=== PATIENT | female | born 1980 | race Caucasian/White ===

== ENCOUNTER 2017-06-01 07:47 | Inpatient (IN) | payer MEDICARE, MEDICAID ==
[~2017-06-01] VITALS: Ht 160 cm; Wt 65.0 kg
[2017-06-01] VITALS (22 sets, daily range): BP systolic 140–187; BP diastolic 66–88; BMI 25.9; BMI 26.0
[~2017-06-01 07:47] MED LIST: AMBIEN10 MG PO; AMITRIPTYLINE H50 MG PO; ESTRACE 0.5 MG0.5 MG PO; MIDODRINE HCL2.5 MG PO; OMEPRAZOLE20 M1 PO; PREDNISONE5 MG PO; RENVELA800 MG PO; TACROLIMUS ANHYD1 MG PO
[2017-06-01] MEDS ORDERED: ZANAFLEX4 MG PO (09:05)
[2017-06-01 09:34] LABS: INR 1.47 (0.85-1.17); PROTIME 17.8 SECONDS (11.6-15.0)
[2017-06-01 09:36] LABS: BASOPHILS 0.3 % (0-2); EOSINOPHILS 4.7 % (0-7); HEMATOCRIT 20.7 % (36.0-48.0); IMMATURE GRANULOCYTES 1.5 % (0-5); LYMPHOCYTES 5.5 % (15-50); MCH 29.1 pg (26.0-34.0); MCHC 30.9 g/dL (31.0-37.0); MCV 94.1 fL (80.0-100.0); MEAN PLATELET VOLUME 10.2 fL (7.4-10.4); MONOCYTES 5.9 % (2-11); NEUTROPHILS 82.1 % (40-80); RDW 16.8 % (11.5-14.5); WBC 6.6 10x3/uL (4.8-10.8)
[2017-06-01 09:37] LABS: PLATELET COUNT 114 10x3/uL (130-400)
[2017-06-01 09:38] LABS: HEMOGLOBIN 6.4 g/dL (12-16)
[2017-06-01 10:13] LABS: CARBON DIOXIDE 21.1 mmol/L (21.0-32.0); CREATININE - SERUM 7.6 mg/dL (0.6-1.3); POTASSIUM - SERUM 4.5 mmol/L (3.5-5.1)
[2017-06-01 10:15] LABS: ANION GAP 18.4 mmol/L (8-16)
--- NOTE | 2017-06-01 10:26 | NUR ---
1020 PT RETURNED TO 2507. CODY BENAVIDEZ APN PAGED
--- NOTE | 2017-06-01 10:58 | NUR ---
6122 CODY BENAVIDEZ APN RETURNED CALL, LAB VALUES GIVEN, ORDERS RECEIVED TO ADMIT TO ICU. PT AND FAMILY INFORMED.
--- NOTE | 2017-06-01 11:19 | NUR ---
1111 REPORT PHONED TO SETH, TO CV06 VIA STRETCHER
--- NOTE | 2017-06-01 11:32 | NUR ---
PT ARRIVED TO UNIT VIA STRETCHER. PT ALERT AND CONVERSANT. ASSISTED TO TOILET PRIOR TO GETTING IN BED. ON NS DRIP.
--- NOTE | 2017-06-01 11:58 | NUR ---
ATTEMPTED BLOOD GLUCOSE CHECK VIA GLUCOMETER. TOO HIGH TO READ. BLOOD GASES ORDERED. POONAM BENAVIDEZ APN FOR RENAL HERE AT THIS TIME.
--- NOTE | 2017-06-01 14:45 | NUR ---
BLOOD GLUCOSE 883 NOW. GLUCOSE DEC >15%. WILL NOT CHANGE INSULIN GTT PER PROTOCOL. RECHECK AFTER 1 HR.
--- NOTE | 2017-06-01 16:45 | NUR ---
Mrs. Flanagan had bedside hemodialysis today in the CVICU via her left upper arm av graft from 1358 until 1628. Average blood flow was 400 mls/minute. Transfused two units of prbc's on dialysis. Removed the 700 mls from the prbc's as well as a net of 2500 mls. No problems during treatment. Post vital signs were: B/P: 177/88, HR: 87, Temp: 98.5, Resps: 14.
--- NOTE | 2017-06-01 17:20 | NUR ---
PT'S AT BEDSIDE WITH DR. PINEDA. UPDATED ON PT'S STATUS.
--- NOTE | 2017-06-01 17:29 | NUR ---
INSULIN GTT DEC TO 3 UNITS/HR PER DR. PINEDA.
[2017-06-01 18:13] LABS: BASOPHILS 0.2 % (0-2); EOSINOPHILS 5.1 % (0-7); HEMATOCRIT 30.1 % (36.0-48.0); HEMOGLOBIN 10.1 g/dL (12-16); IMMATURE GRANULOCYTES 1.2 % (0-5); LYMPHOCYTES 4.6 % (15-50); MCHC 33.6 g/dL (31.0-37.0); MEAN PLATELET VOLUME 9.4 fL (7.4-10.4); NEUTROPHILS 82.9 % (40-80); PLATELET COUNT 134 10x3/uL (130-400); RBC 3.37 10x6/uL (4.00-5.40); RDW 15.7 % (11.5-14.5); WBC 10.2 10x3/uL (4.8-10.8)
[2017-06-01 18:14] LABS: MCV 89.3 fL (80.0-100.0)
[2017-06-01 18:37] LABS: TOTAL IRON BIND CAPACITY 220 ug/dl (260-445)
[2017-06-01 18:57] LABS: CALCIUM 8.7 mg/dL (8.5-10.1)
[2017-06-01 19:04] LABS: ANION GAP 10.1 mmol/L (8-16); CARBON DIOXIDE 30.5 mmol/L (21.0-32.0); CREATININE - SERUM 4.4 mg/dL (0.6-1.3)
[2017-06-01 19:05] LABS: POTASSIUM - SERUM 2.6 mmol/L (3.5-5.1)
--- NOTE | 2017-06-01 19:13 | NUR ---
PT CRITICAL POTASSIUM RESULT. RENAL ON-CALL PAGED. AWAITING RETURN CALL.
--- NOTE | 2017-06-01 19:25 | NUR ---
REPORT REC'D AND CARE ASSUMED, REC'D PT RESTING IN BED, O2 @ 3LITERS VIA NC, AWAKE, ALERT, ORIENTED, AT BS, LEFT HAND PIV WITH NS @ 20CC/HR AND INSULIN @ 3 UNITS/HR, PT COMPLAINS OF CHRONIC BACK PAIN, RATING "6-7" ON 0-10 PAIN SCALE, LEFT GREAT TOE PREVIOUSLY AMPUTATED, GENERALIZED EDEMA NOTED TO LOWER EXT'S, INFORMED PT WOULD CHECK ON PAIN MEDICATION, SR UP X 2, BED IN LOW POSITION, CALL LIGHT IN REACH.
--- NOTE | 2017-06-01 19:45 | NUR ---
PAGED REGARDING CRITICAL POTASSIUM
--- NOTE | 2017-06-01 19:50 | NUR ---
TIZANDINE GIVEN PO FOR PAIN, PT DENIES FURTHER NEEDS, BP STABLE WILL CONT TO MONITOR FOR CHANGES.
--- NOTE | 2017-06-01 20:00 | NUR ---
CABLE BRAIDER PHYSICIAN REPAGED REGARDING LAB VALUE.
[2017-06-01 20:07] LABS: % SATURATION 103 % (15-55); IRON 242 ug/dl (35-150)
--- NOTE | 2017-06-01 20:20 | NUR ---
SPOKE WITH ANSWERING SERVICE REGARDING NO RETURNED CALL FROM MD AFTER PAGE, INFORMED WRONG PHYSICIAN PAGED, DR. OLEARY PAGED REGARDING LAB VALUE.
--- NOTE | 2017-06-01 20:40 | NUR ---
SPOKE WITH DR. OLEARY REGARDING CRITICAL POTASSIUM, NEW ORDERS REC'D.
--- NOTE | 2017-06-01 21:20 | NUR ---
EVENING MEDS GIVEN
--- NOTE | 2017-06-01 21:40 | NUR ---
1ST 10MEQ OF KCL BEGUN AT THIS TIME.
--- NOTE | 2017-06-01 22:40 | NUR ---
FSBS 67, PT ALERT AND CONVERSATING, INSULIN GTT ON HOLD
--- NOTE | 2017-06-01 23:15 | NUR ---
FSBS 88, PT ASSISTED TO REPOSITION ONTO LEFT SIDE, PT DENIES PAIN OR OTHER NEEDS.
[2017-06-02] VITALS (24 sets, daily range): BP systolic 141–195; BP diastolic 68–99; Ht 160 cm; Wt 65.0 kg
--- NOTE | 2017-06-02 01:30 | NUR ---
FSBS 123, INSULIN GTT RESUMED @ 1 UNIT/HR, BP STABLE, WILL MONITOR CLOSELY FOR CHANGES.
--- NOTE | 2017-06-02 03:30 | NUR ---
LAB AT BS FOR AM LAB DRAW, PT DENIES NEEDS, BP ELEVATED WILL CON TO MONITOR FOR CHANGES
[2017-06-02 03:46] LABS: BASOPHILS 0.1 % (0-2); EOSINOPHILS 6.6 % (0-7); HEMATOCRIT 29.6 % (36.0-48.0); HEMOGLOBIN 9.9 g/dL (12-16); IMMATURE GRANULOCYTES 0.9 % (0-5); LYMPHOCYTES 5.8 % (15-50); MCH 30.1 pg (26.0-34.0); MCHC 33.4 g/dL (31.0-37.0); MEAN PLATELET VOLUME 9.2 fL (7.4-10.4); MONOCYTES 7.1 % (2-11); NEUTROPHILS 79.5 % (40-80); PLATELET COUNT 111 10x3/uL (130-400); RBC 3.29 10x6/uL (4.00-5.40); RDW 16.1 % (11.5-14.5); WBC 7.9 10x3/uL (4.8-10.8)
[2017-06-02 04:00] LABS: ANION GAP 9.1 mmol/L (8-16); CALCIUM 8.4 mg/dL (8.5-10.1); CARBON DIOXIDE 31.3 mmol/L (21.0-32.0); CREATININE - SERUM 4.8 mg/dL (0.6-1.3)
[2017-06-02 04:01] LABS: POTASSIUM - SERUM 3.4 mmol/L (3.5-5.1)
--- NOTE | 2017-06-02 05:40 | NUR ---
AM MEDS GIVEN, PT AWAKE TALKING ON PHONE, PT DENIES PAIN OR NEEDS, SR UP X 2, BED IN LOW POSITION, CALL LIGHT IN REACH.
--- NOTE | 2017-06-02 06:00 | NUR ---
NO VISITORS IN AT THIS TIME
--- NOTE | 2017-06-02 06:45 | NUR ---
ON UNIT, UPDATE PROVIDED AND NEW ORDERS REC'D.
[2017-06-02 07:10] LABS: % SATURATION 75 % (15-55); IRON 126 ug/dl (35-150); TOTAL IRON BIND CAPACITY 168 ug/dl (260-445); UNSAT IRON BIND CAPACITY 42 ug/dl (150-375)
--- NOTE | 2017-06-02 07:15 | NUR ---
RECEIVED PT FOR CARE. PT RESTING IN BED WITH EYES OPEN. CALL LIGHT WITHIN REACH. ASSESSMENT COMPLETED. VSS AT THIS TIME.
--- NOTE | 2017-06-02 07:20 | NUR ---
LAB NOTIFIED REGARDING ORDER FOR ANTIERYTHROPOETIN ANTIBODY, ANN, IN LAB STATED HE WOULD FIND OUT HOW TO ORDER AND GET BACK TO ME.
--- NOTE | 2017-06-02 07:25 | NUR ---
SPOKE WITH ANN IN THE LAB, STATED THAT NO LAB IN THE [facility] STATES DOES AND ANTIERYTHROPOETIN ANTIBODY, UPDATE PROVIDED TO AM NURSE.
--- NOTE | 2017-06-02 10:38 | NUR ---
PT UP TO RESTROOM. INCONTINENT OF STOOL. SET UP IN BATHROOM WITH BATHING SUPPLIES AND NEW GOWN. PT ABLE TO WASH SELF.
--- NOTE | 2017-06-02 10:50 | NUR ---
PT AMBULATING AROUND ROOM. STEADY GAIT NOTED.
--- NOTE | 2017-06-02 10:55 | NUR ---
CALLED AND NOTIFIED JACY AT DR. LITTLE'S OFFICE THAT THE LAB IS UNABLE TO FIND ANYONE THAT CAN RUN THE ANTI-ERYTHROPOETIN ANTIBODY LAB. SHE TOOK MY NAME AND NUMBER AND WILL NOTIFY THE NURSE PRACTICTIONER.
--- NOTE | 2017-06-02 11:20 | NUR ---
CHRISTOPHER KENNEDY APN FOR RENAL RETURNED CALL. UPDATED HER ON NOT BEING ABLE TO SEND OUT LAB THAT DR. LITTLE REQUESTED. SHE VOICED UNDERSTANDING.
--- NOTE | 2017-06-02 14:53 | NUR ---
LINENS CHANGED ON BED. PT ASSISTED BACK TO BED. STEADY GAIT NOTED. VSS AT THIS TIME.
--- NOTE | 2017-06-02 17:10 | NUR ---
PT SITTING UP IN BED. NO NEEDS AT THIS TIME. VSS.
--- NOTE | 2017-06-02 19:45 | NUR ---
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
--- NOTE | 2017-06-02 21:15 | NUR ---
EVENING MEDS GIVEN, FSBS 295, 6UNITS HUMALONG GIVEN SQ TO LEFT ARM PER REQUEST, NO VISITORS IN AT THIS TIME, WILL MONITOR CLOSELY FOR CHANGES.
--- NOTE | 2017-06-02 23:30 | NUR ---
REASSESSMENT COMPLETED, PT RESTING ON RIGHT SIDE EYES CLOSED, RESP EVEN AND UNLABORED, VSS.
[2017-06-03] VITALS (21 sets, daily range): BP systolic 155–206; BP diastolic 74–105
--- NOTE | 2017-06-03 00:35 | NUR ---
PT'S O2 SAT 72%, SLEEP APNEA NOTED, PT AWAKENED AND DEEP BREATHING DONE, O2 SAT 95%, WILL MONITOR CLOSELY FOR CHANGES.
--- NOTE | 2017-06-03 00:45 | NUR ---
O2 SAT DECREASED AGAIN TO 70'S, PT AWAKENED STATES " I HAVE SLEEP APNEA" O2 PLACED AT 2LITERS VIA NC, WILL MONITOR CLOSELY FOR CHANGES.
--- NOTE | 2017-06-03 03:00 | NUR ---
LAB AT FOR AM LAB DRAW
--- NOTE | 2017-06-03 04:30 | NUR ---
NO CHANGES IN STATUS
[2017-06-03 04:35] LABS: BASOPHILS 0.1 % (0-2); HEMATOCRIT 30.1 % (36.0-48.0); HEMOGLOBIN 9.8 g/dL (12-16); IMMATURE GRANULOCYTES 1.2 % (0-5); LYMPHOCYTES 6.4 % (15-50); MCH 29.6 pg (26.0-34.0); MCHC 32.6 g/dL (31.0-37.0); MCV 90.9 fL (80.0-100.0); MEAN PLATELET VOLUME 9.8 fL (7.4-10.4); MONOCYTES 5.8 % (2-11); NEUTROPHILS 82.5 % (40-80); PLATELET COUNT 131 10x3/uL (130-400); RBC 3.31 10x6/uL (4.00-5.40); RDW 16.9 % (11.5-14.5); WBC 7.6 10x3/uL (4.8-10.8)
[2017-06-03 04:48] LABS: ANION GAP 14.1 mmol/L (8-16); CALCIUM 8.5 mg/dL (8.5-10.1); PHOSPHOROUS 3.2 mg/dL (2.5-4.9)
[2017-06-03 04:50] LABS: CREATININE - SERUM 6.5 mg/dL (0.6-1.3); POTASSIUM - SERUM 4.1 mmol/L (3.5-5.1)
--- NOTE | 2017-06-03 06:30 | NUR ---
AM MEDS GIVEN, FSBS 347, 8 UNITS HUMALOG GIVEN SUBQUE, NO VISITORS IN AT THIS TIME
--- NOTE | 2017-06-03 07:15 | NUR ---
REPORT RECIEVED FROM NEONATAL SOCIAL WORKER NURSE. PT RESTING QUEITLY. NO S/SX OF ACUTE DISTRESS NOTED AT THIS TIME. SHIFT ASSESSMENT COMPLETE PER FLOWSHEET. CALL LIGHT IN REACH. BED IN LOW POSITION. WILL CONT TO ASSESS FOR CHANGES.
--- NOTE | 2017-06-03 09:06 | NUR ---
* Is the patient Alert and Oriented? Yes 0 * How many steps to enter\exit or inside your home? 1 0 * PCP Marli Bowman 0 * [facility] * Preadmission Environment Home with Family 0 * ADLs Independent 0 * Equipment Other 0 * Other Equipment Home Hemodialysis 0 * List name and contact numbers for known caregivers / representatives who currently or will assist patient after discharge: Spouse - Flavio [phone] 0 * Additional services required to return to the preadmission environment? Yes 0 * Can the patient safely return to the preadmission environment? Yes 0 * Has this patient been hospitalized within the prior 30 days at any hospital? No Patient Name: WILBERT HINES Admission Status: Elective Accout number: [id number] Admission Date: 06-01-2017 : 1980 Admission Diagnosis: Attending: MARQUEZ Current LOS: 2 Anticipated DC Date: 06-04-2017 Planned Disposition: Home with Home Health Primary Insurance: MEDICARE A & B Discharge Planning Comments: CM met with patient to assess dc plans/needs. Patient states she lives at home with her , Flavio. She reports she is independent with all ADL's & IADL's. She does not use any assistive devices for mobility. She does home HD 5 days per week. She denies having home health services. Discussed HH services. She is agreeable to referral at discharge. RAJNI signed for [email or web address] in [place]. Referral faxed and called to Briana @ [phone]. Patient states she does not have a glucometer but will be getting one at [facility] when discharged from the hospital. Anticipate DC tomorrow. CM will follow. Utility Bill Collection Clerk: Marli Real
[2017-06-03 09:18] LABS: FOLATE (FOLIC ACID) - SERUM 2.9 ng/mL (>3.0)
--- NOTE | 2017-06-03 09:30 | NUR ---
DIALYSIS STARTED. VSS AT THIS TIME. WILL CONT TO ASSESS.
--- NOTE | 2017-06-03 11:15 | NUR ---
REMAINS ON DIALYSIS TX. WILL CONT TO ASSESS. NO NEEDS VOICED AT THIS TIME.
--- NOTE | 2017-06-03 13:00 | NUR ---
DIALYSIS COMPLETE. NO COMPLICATIONS NOTED THROUGHOUT TX. VSS REMAINED STABLE. WILL CONT TO ASSESS.
--- NOTE | 2017-06-03 15:00 | NUR ---
ASSISTED TO RECLINER. CALL LIGHT AND PERSONAL BELONGINGS PLACED IN REACH. DENIES NEEDS AT THIS TIME. WILL CONT TO ASSESS.
--- NOTE | 2017-06-03 17:00 | NUR ---
VSS. EATING DINNER. NO CHANGES NOTED.
--- NOTE | 2017-06-03 19:50 | NUR ---
REPORT REC'D AND CARE ASSUMED, REC'D PT SITTING UP IN RECLINER AT BS VISITING WITH SPOUSE, AWAKE, ALERT, ORIENTED X 4 ON ROOM AIR, LEFT HAND PIV SALINE LOCKED, RIGHT UPPER ARM FISTULA, PALPABLE THRILL AND BRUIT AUSCULTATED, LEFT GREAT TOE PREVIOUSLY AMPUTATED, PT DENIES PAIN OR NEEDS, CALL LIGHT IN REACH.
--- NOTE | 2017-06-03 20:00 | NUR ---
PT ASSISTED UP TO BATHROOM, PT STATES " I HAVE A RASH", RASH NOTED TO INNER THIGHS AND BACK OF LEGS, PT REQUESTING SOMETHING FOR IT STATES " I USUALLY GET IT IT IS CAUSED FROM HEAT", SKIN BARRIER SPRAY PROVIDED.
--- NOTE | 2017-06-03 20:15 | NUR ---
PT ASSISTED BACK TO BED, AT
--- NOTE | 2017-06-03 21:30 | NUR ---
EVENING MEDS GIVEN, PT REQUESTING AMBIEN FOR SLEEP, PROVIDED AT THIS TIME, FSBS 319, 8 UNITS HUMALOG GIVEN, CUP OF ICE PROVIDED ON REQUEST, PT DENIES NO FURTHER NEEDS.
[2017-06-04] VITALS: BP 169/85
--- NOTE | 2017-06-04 01:00 | NUR ---
REPORT GIVEN TO VAHID COELHO RN
--- NOTE | 2017-06-04 01:00 | NUR ---
REPORT RECIEVED. PT APPEARS TO BE SLEEPING DENIES ANY NEEDS. WILL CONTINUE TO MONITOR.
[2017-06-04 03:00] VITALS: BP 182/82
--- NOTE | 2017-06-04 03:09 | NUR ---
PT COMPLAINS OF BACK PAIN. PAIN OF A 10 OUT OF 10 TREATED WITH PRN MEDS PER ORDER.
[2017-06-04 06:48] LABS: BASOPHILS 0.3 % (0-2); EOSINOPHILS 4.9 % (0-7); HEMATOCRIT 29.2 % (36.0-48.0); HEMOGLOBIN 9.2 g/dL (12-16); IMMATURE GRANULOCYTES 1.6 % (0-5); LYMPHOCYTES 7.3 % (15-50); MCH 29.6 pg (26.0-34.0); MCHC 31.5 g/dL (31.0-37.0); MCV 93.9 fL (80.0-100.0); MEAN PLATELET VOLUME 8.5 fL (7.4-10.4); MONOCYTES 6.5 % (2-11); NEUTROPHILS 79.4 % (40-80); PLATELET COUNT 104 10x3/uL (130-400); RBC 3.11 10x6/uL (4.00-5.40); RDW 16.9 % (11.5-14.5); WBC 7.1 10x3/uL (4.8-10.8)
[2017-06-04 07:15] LABS: ANION GAP 12.9 mmol/L (8-16); CALCIUM 8.3 mg/dL (8.5-10.1); CARBON DIOXIDE 28.4 mmol/L (21.0-32.0); CREATININE - SERUM 5.5 mg/dL (0.6-1.3); PHOSPHOROUS 3.4 mg/dL (2.5-4.9)
[2017-06-04 07:20] LABS: POTASSIUM - SERUM 3.3 mmol/L (3.5-5.1)
[2017-06-04] MEDS ORDERED: COZAAR50 MG PO (09:48)
[2017-06-04] MEDS ORDERED: NORVASC5 MG PO (09:48)
[2017-06-04] MEDS ORDERED: HUMULIN N100 U/ML SC (09:50)
[2017-06-04] MEDS ORDERED: HUMALOG 30100 UNITS/ SC (09:51)
[2017-06-04] MEDS ORDERED: NEPHRO-VITE RX1 TAB PO (09:51)
[2017-06-04] MEDS ORDERED: TACROLIMUS ANHYD1 MG PO (09:51)
--- NOTE | 2017-06-04 09:53 | NUR ---
Nutrition Follow Up: Chart reviewed. Pt is eating 60% meal avg on a renal ADA soft diet. Wt stable. +BM 06/02/17. Labs reviewed - Glucose continues elevated. Meds noted. Rec continue current diet. RD following.
--- NOTE | 2017-06-04 12:10 | NUR ---
KIT MET WITH THE PATIENT AT THE BEDSIDE THIS AM. STATED I WOULD ADVISE [employer] OF HER DISCHARGE. DISCUSSED WHEN SHE WOULD F/U WITH DR WATSON. SHE WOULD LIKE HIM TO BE ADVISED OF HER HOSPITALIZATION AND D/C. PRIMARY NURSE TO ADVISE OF D/C INSTRUCTIONS AND MED LIST. PATIENT DENIES ANY OTHER NEEDS. TC TO DR SNIDER'S OFFICE AT [phone]. FAXED D/C SUMMARY TO [phone]. TC TO [employer] [facility] AT [phone]. FAXED D/C SUMMARY, MEDLIST,D/C INSTRUCTION & SPEECH THERAPY BEDSIDE SWALLOW EVAL [phone].
--- NOTE | 2017-06-04 12:51 | NUR ---
1030-CALLED IN PRESCRIPTION FOR COZAAR 50 MG PO-NPH 10UNITS BID-HUMALOG S/S-NEPHROVITE 1 TAB DAILY TO [facility] DISCHARGE INSTRUCTIONS GIVEN AND STRESSED TO CONTINUE FOLLOW UP WITH DR GILLILAND REGARDING INITIAL ADMISSION DIAGNOSIS-PT STATED SHE WOULD
--- NOTE | 2017-06-07 07:17 | DS ---
PATIENT:WILBERT FLANAGAN :[birth year] MEDICAL RECORD: [id number] DISCHARGE SUMMARY ADMISSION DATE: 06/01/17 DISCHARGE DATE: 06/04/17 HISTORY OF PRESENT ILLNESS: Ms. 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 She also has a pancreas transplant that she takes immunosuppressive therapy. She has been stable on home dialysis and was admitted to the outpatient area for a bilateral breast biopsy by Dr. Hogan and preop lab revealed a blood sugar of over a thousand. The patient was asymptomatic and consequently was admitted for the above. HOSPITAL COURSE: The patient was begun on insulin drip and blood sugars are promptly improved. This was felt to represent her pancreatic transplant failure. She was covered with broad-spectrum antibiotics on an empiric basis. Initial cultures were negative. She was eventually switched from IV to subq, longer lasting NPH insulin. 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 She is followed by Dr. Pat and an antierythropoietin antibody apparently is not available for send out. At the time of discharge, she was back to baseline and we are in the process of tapering her immunosuppressive drugs. Her abdominal ultrasound was negative and she was otherwise stable. DISCHARGE DIAGNOSES: 1. Failure of a pancreatic transplant. 2. Severe hyperglycemia secondary to the above. 3. End-stage renal disease. 4. Loss of the kidney transplant. 5. Hypertension. 6. Chronic anemia. PLAN: The patient will be discharged today. She will resume her home dialysis schedule. She will see me in the office in 1-2 weeks and resume her renal diet. DISCHARGE MEDICATIONS: Will be Nephro-Kasia 1 daily, Norvasc 5 mg b.i.d., Ambien p.r.n., NPH 10 subQ b.i.d., Prograf 1 mg daily. She will be on prednisone 5 mg daily. We will taper that and the Prograf as an outpatient, estradiol 0.5 daily, Protonix 40 daily, Epogen resume as an outpatient and follow up with Dr. Pat, Daphne 1600 t.i.d., Elavil 50 mg h.s. TRANSINT:[id number] Voice Confirmation ID: [id number] DOCUMENT ID: [id number] CC: [facility] [phone] SAMUEL LITTLE MD at 0717 CC: [id number] DICTATION DATE: 06/04/17 0747 EXPEDITIONARY FORCE COMBAT SKILLS: 06/04/17 0823 DIS IN 06/04/17 [id number] [place] [address]
== END 2017-06-04 11:00 | disposition home health service (06) | DRG 438 ==
LOC: D.OPS 07:47 → D.PAN 09:45 → D.OPS 10:15 → D.PAN 10:15 → D.CVICU 11:22 → D.OPS 11:23 → D.CVICU 06-04 11:00
PROVIDERS: Internal Medicine; Surgery; ADMIT Internal Medicine Nephrology
PROC: 5A1D60Z (ICD-10-PCS; principal; 2017-06-01)
DX: T86.891 Other transplanted tissue failure (principal); E10.10 Type 1 diabetes mellitus with ketoacidosis without coma; N18.6 End stage renal disease; T86.12 Kidney transplant failure; Z79.4 Long term (current) use of insulin; Z99.2 Dependence on renal dialysis; D64.9 Anemia, unspecified; Y83.0 Surgical operation with transplant of whole organ as the cause of abnormal reaction of the patient, or of later complication, without mention of misadventure at the time of the procedure; E10.22 Type 1 diabetes mellitus with diabetic chronic kidney disease; E10.40 Type 1 diabetes mellitus with diabetic neuropathy, unspecified; I95.9 Hypotension, unspecified; N63 Unspecified lump in breast; G47.30 Sleep apnea, unspecified; F32.9 Major depressive disorder, single episode, unspecified; F41.9 Anxiety disorder, unspecified

== ENCOUNTER 2017-11-30 05:11 | Day surgery (SDC) | payer MEDICARE ==
[~2017-11-30] VITALS: Ht 160 cm; Wt 82.6 kg
--- NOTE | ~2017-11-30 | OP ---
PATIENT NAME: WILBERT HINES MEDICAL RECORD: [id number] :[birth year] LOCATION:[facility] ADMISSION DATE: SURGEON: CHRISTOS GILLILAND MD DATE OF OPERATION: 11/30/2017 PREOPERATIVE DIAGNOSES: 1. Fibrocystic breast disease. 2. Bilateral breast pain. 3. End-stage renal disease. 4. Diabetes mellitus. 5. Hypertension. 6. Anemia of chronic disease. POSTOPERATIVE DIAGNOSES: 1. Fibrocystic breast disease, bilateral breast pain. 2. End-stage renal disease. 3. Diabetes mellitus. 4. Hypertension. 5. Anemia of chronic disease. PROCEDURE: Bilateral breast quadrantectomies of the upper outer quadrants. SURGEON: Christos Gilliland MD REPORT OF PROCEDURE: The patient's bilateral breasts were prepped and draped in sterile fashion. We approached the left side first. A semicircular incision was made on the edge of the nipple areolar complex in the superior lateral aspect. The subcutaneous tissue was dissected with electrocautery and as we entered the breast tissue. The upper outer quadrant of the breast was firm calcified tissue. We came around this calcified tissue in all directions until we were able to completely free up this segment of tissue. In order to complete this essentially had to remove the upper outer quadrant of the left breast. Once this segment was removed, it was sent off for permanent specimen. The subcutaneous tissues were irrigated out and the pocket was inspected thoroughly and any bleeding that was found was treated with electrocautery. We then packed the wound with a lap pad. We then approached the right side. Again, a semicircular incision was made on the edge of the nipple areolar complex in the superior lateral aspect. The subcutaneous tissue was dissected through using electrocautery and again, we encountered a firm mass of calcified breast tissue. Again, we came around the breast tissue using electrocautery, essentially removing the right upper outer quadrant. Once the breast tissue was completely excised then it was sent off for permanent specimen. We inspected the pouch and any bleeding that was found was treated with electrocautery. We irrigated out the wound with normal saline. We then packed this side with a lap pad. We removed the lap pad from the left breast and saw there was no sign of any active bleeding. We reapproximated the subcutaneous tissues with interrupted 3-0 Vicryls and the skin was closed with running subcutaneous 5-0 Monocryl. We went back to the right side and again removed the lap pad and saw no evidence of any active bleeding. The subcutaneous tissues were reapproximated with interrupted 3-0 Vicryls and the skin was closed with running subcutaneous 5-0 Monocryl. A total of 10 mL of 0.5% Marcaine plain was infused into the surrounding tissues in the bilateral breast and the wounds were dressed appropriately. COMPLICATIONS: None. OPERATIVE REPORT [id number] WILBERT HINES CONDITION: Stable. ANESTHESIA: General endotracheal and local. BLOOD LOSS: 30 mL. TRANSINT:[id number] Voice Confirmation ID: [id number] DOCUMENT ID: [id number] CHRISTOS GILLILAND MD at 1137 CC: VOLODYMYR LIAO MD [id number] DICTATION DATE: 11/30/17925 DATA SUPPORT SPECIALIST: 11/30/1745 [facility] 11/30/[address] [address]
[~2017-11-30 05:11] MED LIST changes: +COZAAR50 MG PO; +HUMALOG 30100 UNITS/ SC; +HUMULIN N100 U/ML SC; +NEPHRO-VITE RX1 TAB PO; +NORVASC5 MG PO; +ZANAFLEX4 MG PO
[2017-11-30] MEDS ORDERED: LANTUS SOL100 UNIT/1 SC (06:23)
[2017-11-30] MEDS ORDERED: KEPPRA250 MG PO (06:25)
[2017-11-30] MEDS ORDERED: PROZAC20 MG PO (06:26)
[2017-11-30] MEDS ORDERED: PEPCID20 MG PO (06:26)
[2017-11-30] MEDS ORDERED: PHOSLO667 MG PO (06:27)
[2017-11-30] MEDS ORDERED: ROCALTROL0.25 MCG PO (06:27)
[2017-11-30] MEDS ORDERED: ATIVAN0.5 MG PO (06:32)
[2017-11-30] MEDS ORDERED: PHENERGAN25 M1 PO (06:32)
[2017-11-30 06:42] VITALS: BP 169/82; Ht 160 cm; Wt 82.6 kg
[2017-11-30 07:25] LABS: BASOPHILS 0.4 % (0-2); EOSINOPHILS 10.2 % (0-7); HEMATOCRIT 39.6 % (36.0-48.0); HEMOGLOBIN 12.5 g/dL (12-16); IMMATURE GRANULOCYTES 0.4 % (0-5); LYMPHOCYTES 9.6 % (15-50); MCH 30.9 pg (26.0-34.0); MCHC 31.6 g/dL (31.0-37.0); MCV 97.8 fL (80.0-100.0); MEAN PLATELET VOLUME 8.9 fL (7.4-10.4); MONOCYTES 10.8 % (2-11); NEUTROPHILS 68.6 % (40-80); RBC 4.05 10x6/uL (4.00-5.40); RDW 15.1 % (11.5-14.5)
[2017-11-30 07:29] LABS: PLATELET COUNT 158 10x3/uL (130-400)
[2017-11-30 07:40] LABS: ANION GAP 16.4 mmol/L (8-16); CALCIUM 7.7 mg/dL (8.5-10.1); CREATININE - SERUM 6.4 mg/dL (0.6-1.3); POTASSIUM - SERUM 4.4 mmol/L (3.5-5.1)
[2017-11-30 07:43] LABS: INR 1.11 (0.85-1.17); PROTIME 13.9 SECONDS (11.6-15.0)
[2017-11-30] MEDS ORDERED: HYDROCODONE-APA1 TAB PO (09:20)
== END 2017-11-30 12:56 | disposition home or self-care (01) ==
LOC: D.OPS 05:11 → D.PAN 09:15 → D.OPS 12:56
PROVIDERS: Surgery
DX: N60.12 Diffuse cystic mastopathy of left breast (principal); N60.11 Diffuse cystic mastopathy of right breast; N64.1 Fat necrosis of breast; E11.22 Type 2 diabetes mellitus with diabetic chronic kidney disease; I12.0 Hypertensive chronic kidney disease with stage 5 chronic kidney disease or end stage renal disease; N18.6 End stage renal disease; D63.1 Anemia in chronic kidney disease; Z01.812 Encounter for preprocedural laboratory examination

== ENCOUNTER → 2018-12-06 18:12 | Outpatient (CLI) | payer MEDICARE ==
[2017-11-30 06:42] VITALS: BMI 32.3
[~2018-12-06 18:12] MED LIST changes: +ATIVAN0.5 MG PO; +HYDROCODONE-APA1 TAB PO; +KEPPRA250 MG PO; +LANTUS SOL100 UNIT/1 SC; +PEPCID20 MG PO; +PHENERGAN25 M1 PO; +PHOSLO667 MG PO; +PROZAC20 MG PO; +ROCALTROL0.25 MCG PO
== END | disposition home or self-care (01) ==
LOC: D.MAMMO 13:15
DX: Z12.31 Encounter for screening mammogram for malignant neoplasm of breast (principal)

== ENCOUNTER → 2018-12-22 09:48 | Outpatient (CLI) | payer MEDICARE ==
[2017-11-30 06:42] VITALS: BMI 32.3
== END | disposition home or self-care (01) ==
LOC: D.US 09:48
PROVIDERS: ATTEND Internal Medicine Nephrology
DX: R92.8 Other abnormal and inconclusive findings on diagnostic imaging of breast (principal)

== ENCOUNTER → 2019-01-19 10:01 | Outpatient (CLI) | payer MEDICARE ==
[2017-11-30 06:42] VITALS: BMI 32.3
== END | disposition home or self-care (01) ==
LOC: D.US 10:01
PROVIDERS: ATTEND Surgery
DX: N63.11 Unspecified lump in the right breast, upper outer quadrant (principal)

== ENCOUNTER 2019-08-09 13:12 | Inpatient (IN) | payer MEDICARE ==
[~2019-08-09] VITALS: Ht 160 cm; Wt 56.8 kg
[2019-08-09] VITALS (9 sets, daily range): BP systolic 124–177; BP diastolic 66–86; BMI 22.6
--- NOTE | 2019-08-09 13:37 | NUR ---
ADMISSIONS SAID NOT TO TRIAGE PATIENT AT THIS TIME THE PATIENT MAY BE A DIRECT ADMIT. THEY WILL ADVISE IF PATIENT NEEDS TRIAGED FOR ED.
[2019-08-09] MEDS ORDERED: NORVASC5 MG PO (13:51)
[2019-08-09] MEDS ORDERED: TRESIBA FL100 UNIT/1 SC (13:52)
[2019-08-09] MEDS ORDERED: BRILINTA90 MG PO (13:53)
[2019-08-09] MEDS ORDERED: [UNRECOGNIZED DRUG - OTHER] (13:53)
[2019-08-09] MEDS ORDERED: LIPITOR40 MG PO (13:54)
[2019-08-09] MEDS ORDERED: ASPIRIN81 MG PO (13:54)
[2019-08-09 15:04] LABS: BASOPHILS 0.2 % (0-2); EOSINOPHILS 3.9 % (0-7); HEMATOCRIT 27.8 % (36.0-48.0); HEMOGLOBIN 8.8 g/dL (12-16); IMMATURE GRANULOCYTES 0.7 % (0-5); LYMPHOCYTES 7.2 % (15-50); MCH 30.7 pg (26.0-34.0); MCHC 31.7 g/dL (31.0-37.0); MCV 96.9 fL (80.0-100.0); MEAN PLATELET VOLUME 9.7 fL (7.4-10.4); MONOCYTES 9.6 % (2-11); NEUTROPHILS 78.4 % (40-80); PLATELET COUNT 148 10x3/uL (130-400); RBC 2.87 10x6/uL (4.00-5.40); RDW 14.3 % (11.5-14.5); WBC 4.6 10x3/uL (4.8-10.8)
[2019-08-09 15:18] LABS: CALC OSMOLALITY 284 mosm/kg (275-300); CARBON DIOXIDE 29.6 mmol/L (21.0-32.0); CHLORIDE - SERUM 96 mmol/L (98-107); CREATININE - SERUM 3.9 mg/dL (0.6-1.3); GLUCOSE 298 mg/dL (74-106); POTASSIUM - SERUM 3.2 mmol/L (3.5-5.1); SODIUM 136 mmol/L (136-145); UREA NITROGEN 19 mg/dL (7-18); eGFR NON AFRICAN AMERICAN 13 mL/min (90-120)
[2019-08-09 15:21] LABS: APTT 28.7 SECONDS (22.8-39.4); INR 1.11 (0.85-1.17); PROTIME 13.8 SECONDS (11.6-15.0)
[2019-08-09 15:40] LABS: ALKALINE PHOSPHATASE 184 U/L (46-116); ALT (SGPT) 76 U/L (10-68); BILIRUBIN - TOTAL 0.46 mg/dL (0.2-1.3); CKMB 0.1 U/L (0.0-3.6); CREATINE KINASE 36 UL (21-215); PROTEIN - SERUM 7.9 g/dL (6.4-8.2)
[2019-08-09 15:46] LABS: TROPONIN-I 0.183 ng/mL (0.000-0.060)
--- NOTE | 2019-08-09 19:30 | NUR ---
PT A/OX4, LUNGS CLEAR, DRESSING INTACT TO RIGHT UPPER ARM AV GRAFT, LEFT WRIST PIV INTACT AND SL, USES BSC AD PANCHITO, NO C/O @ THIS TIME
--- NOTE | 2019-08-09 21:30 | NUR ---
PT RESTING QUIETLY WITHOUT DISTRESS, VITALS STABLE
--- NOTE | 2019-08-09 23:23 | NUR ---
PT SLEEPING, LYING ON RIGHT SIDE, WILL CONT TO MONITOR
[2019-08-10] VITALS (20 sets, daily range): BP systolic 110–174; BP diastolic 54–90; Ht 160 cm; Wt 56.8 kg
--- NOTE | 2019-08-10 01:15 | NUR ---
PT SLEEPING WITH NO DISTRESS, NPO THIS AM FOR PROCEDURE, VITALS STABLE
--- NOTE | 2019-08-10 03:34 | NUR ---
PT AWAKE WATCHING TV WITH NO C/O, VITALS STABLE
[2019-08-10 04:23] LABS: BASOPHILS 0.2 % (0-2); EOSINOPHILS 6.5 % (0-7); HEMATOCRIT 27.3 % (36.0-48.0); HEMOGLOBIN 8.4 g/dL (12-16); IMMATURE GRANULOCYTES 0.4 % (0-5); LYMPHOCYTES 10.8 % (15-50); MCH 30.1 pg (26.0-34.0); MCHC 30.8 g/dL (31.0-37.0); MCV 97.8 fL (80.0-100.0); MEAN PLATELET VOLUME 9.6 fL (7.4-10.4); MONOCYTES 11.9 % (2-11); NEUTROPHILS 70.2 % (40-80); PLATELET COUNT 166 10x3/uL (130-400); RBC 2.79 10x6/uL (4.00-5.40); RDW 14.3 % (11.5-14.5); WBC 4.5 10x3/uL (4.8-10.8)
[2019-08-10 04:39] LABS: ANION GAP 12.4 mmol/L (8-16); CALCIUM 7.7 mg/dL (8.5-10.1); CARBON DIOXIDE 28.6 mmol/L (21.0-32.0)
[2019-08-10 04:46] LABS: CREATININE - SERUM 5.2 mg/dL (0.6-1.3)
--- NOTE | 2019-08-10 05:00 | NUR ---
PT GLUCOSE 423 WITH AM LAB, NO ORDERS FOR FSBS OR SLIDING SCALE, PAGED DR PINEDA, ORDERS RECIEVED, DISCUSSED WITH PT, STATES SHE IS VERY BRITTLE DIABETIC, GIVEN 8 UNITS REGULAR INSULIN, WILL RECHECK FSBS BEFORE END OF SHIFT
--- NOTE | 2019-08-10 06:27 | NUR ---
FSBS RECHECKED, GLUCOMETER READS 435 AND 389, ORDERED STAT GLUCOSE TO CONFIRM LEVEL
--- NOTE | 2019-08-10 07:30 | NUR ---
PATIENT IS ALERT AND ORIENTED. REPORT RECIEVED FROM SALEEM ROSAS. ROOM CLEAN. BED LOW AND LOCKED. CALL LIGHT IN REACH. BEDSIDE TABLE WITHIN REACH. ASSESSMENT COMPLTED SEE ASSESSMENT. NO DISTRESS. DENIES NEEDS. BLOOD SUGAR BEING MONITORED. DR HUERTA AT BEDSIDE. ORDERS GIVEN.
--- NOTE | 2019-08-10 10:00 | NUR ---
BLOOD SUGAR TAKEN. NOT TREATED DUE TO ROBERT STATED SHE IS VERY BRITTLE TO INSULIN. I TOLD HER I WOULD CHECK IT AGAIN BEFORE SURGERY AND TREAT IF IT GOES BACK UP FROM 244.
--- NOTE | 2019-08-10 13:16 | NUR ---
PT PREOPED AND LEFT VIA BED WITH THE OR STAFF. LEFT IN A STABLE CONDITION.
--- NOTE | 2019-08-10 13:19 | NUR ---
PATIENT TAKEN TO OR
--- NOTE | 2019-08-10 18:25 | NUR ---
patient back from OR
--- NOTE | 2019-08-10 18:26 | NUR ---
hemesplit is oozing. recovery nurse oscar stated they put a normal saline bag to hold pressure.
--- NOTE | 2019-08-10 19:00 | NUR ---
REPORT REC'D, PT CARE ASSUMED. ASSESSMENT COMPLETED PER FLOWSHEETS. PT A/O X4, DENIES ANY DISCOMFORT AT THIS TIME. SR ON CM WITH HR AT 86BPM, LUNG SOUNDS CLEAR TO ALL EMMANUEL, UNLABORED. RT UA WITH CLEAR DRESSING C,D,I. LEFT IJ HEMOSPLIT WITH SMALL BLOOD DRAINGE NOTED. DRESSING REINFORCED, WILL CONT TO MONITOR.
--- NOTE | 2019-08-10 19:52 | MORECARE ---
CASE MANAGEMENT DISCHARGE SUMMARY PATIENT: WILBERT HINES UNIT: [id number] ADM DATE: 08/09/19 AGE: 39 : [birth year] SEX: F ROOM/BED: D.2301 AUTHOR: LUTHER THORNTON PHYSICIAN: REFERRING PHYSICIAN: SAMUEL LITTLE MD DATE OF SERVICE: 08/10/19 Discharge Plan Patient Name: [facility]ILBERT HINES [facility] [facility] 1980 Planned Disposition: Anticipated Discharge Date: Discharge Date: Expected LOS: Initial Reviewer: [email or web address] Initial Review Date: 08/09/2019 Generated: 08/10/19 8:52 pm Comments DCP- Discharge Planning Updated by [email or web address]: Anika Castaneda on 08/10/19 6:[address] CM attempted to see patient she was in surgery when CM came in for assessment. No family currently available Patient Name: WILBERT HINES Page [id number] at 195 All edits/amendments must be made on the electronic document DICTATION DATE: 08/10/191951 AQUATIC LIFE LABORER: IRAIS 08/10/191951 RPT#: [id number] DC DATE: STATUS: ADM IN [facility] [address] [place] [address] END OF REPORT
--- NOTE | 2019-08-10 21:00 | NUR ---
SCHEDULED MEDS GIVEN WITHOUT DIFFIC. PT DAVID WELL.
--- NOTE | 2019-08-10 23:00 | NUR ---
REASSESSMENT COMPLETED PER FLOWSHEETS. PT AROUSE EASILY WITH VOICES, DENIES DISTRESS AT THIS TIME. VSS.NO NEEDS VOICES AT THIS TIME. CONT TO MONITOR.
[2019-08-11] VITALS (18 sets, daily range): BP systolic 99–160; BP diastolic 53–87
--- NOTE | 2019-08-11 01:15 | NUR ---
ASSISTED TO BSC, MED SOFT STOOL RESULTED. PHANI CARE PROVIDED. BACK TO BED. DAVID WELL.
[2019-08-11 02:45] LABS: BASOPHILS 0.1 % (0-2); EOSINOPHILS 5.4 % (0-7); HEMATOCRIT 24.1 % (36.0-48.0); IMMATURE GRANULOCYTES 0.7 % (0-5); LYMPHOCYTES 7.7 % (15-50); MCHC 30.3 g/dL (31.0-37.0); MCV 99.2 fL (80.0-100.0); MEAN PLATELET VOLUME 9.1 fL (7.4-10.4); MONOCYTES 8.6 % (2-11); NEUTROPHILS 77.5 % (40-80); PLATELET COUNT 170 10x3/uL (130-400); RBC 2.43 10x6/uL (4.00-5.40); RDW 14.3 % (11.5-14.5)
[2019-08-11 02:51] LABS: WBC 6.9 10x3/uL (4.8-10.8)
[2019-08-11 02:52] LABS: HEMOGLOBIN 7.3 g/dL (12-16)
--- NOTE | 2019-08-11 03:00 | NUR ---
REASSESSMENT COMPLETED.SEE FLOWSHEETS FOR ALL FINDINGS. NO ACUTE CHANGES IN PT'S STATUS NOTED. VSS. CPOC.
[2019-08-11 03:15] LABS: ANION GAP 14.3 mmol/L (8-16); CREATININE - SERUM 7.1 mg/dL (0.6-1.3); PHOSPHOROUS 6.7 mg/dL (2.5-4.9); POTASSIUM - SERUM 3.3 mmol/L (3.5-5.1); VANCOMYCIN - RANDOM 29.1 ug/mL (10.0-20.0)
--- NOTE | 2019-08-11 08:45 | NUR ---
0700 PT RECIEVED ALERT AND OREINTED L IJ HEMOSPLIT DRESSING CDI, L WRIST PIV SL, RUE DRESSING CDI FISTULA THRILL BRUIT PRESENT, PT STATES IS TENDER AND SORE TO TOUCH, DENIES ALL NEEDS 0800 DINNER TRAY SERVED 0830 CLARIFIED WITHDR SIDNEY EPOETIN ORDER
--- NOTE | 2019-08-11 11:20 | NUR ---
REPORT GIVEN CARE RESUMED, AAO, IN BED, CALL LIGHT IN REACH, DENIES PAIN, WILL CONTINUE WITH POC
--- NOTE | 2019-08-11 12:00 | NUR ---
SPOUSE AT BEDSIDE, AWAITING HD, PATIENT AAO, LUNCH TRAY AT BEDSIDE, NO NEEDS AT AT THIS TIME
--- NOTE | 2019-08-11 12:30 | NUR ---
HD BEGAN, SPOUSE AT BEDSIDE, NO NEEDS AT THIS TIME
--- NOTE | 2019-08-11 13:36 | NUR ---
DR UPTON UPDATED PATIENT STATUS TO DAUGHTER AT BEDSIDE AND VIA PHONE, NO OTHER NEED AT THIS TIME
--- NOTE | 2019-08-11 15:18 | NUR ---
HD COMPLETE, 2L OFF, AAO, CALL LIGHT IN REACH, NO NEEDS AT THIS TIME
--- NOTE | 2019-08-11 18:12 | NUR ---
RECEIVED FROM ICU VIA W/C. SHE IS ALERT ABLE TO SELF TRANSFER. HER RIGHT UPPER ARM HAS DRESSING ON IT BUT IS SWOLLEN, PAINFUL AND WARM TO TOUCH. NO BLEEDING NOTED. LEFT SIDE OF NECK HAS HEMOSPLIT. LEFT WRIST HAS SALINE LOCK. AT BEDSIDE. RESP EVEN WITHOUT LABOR. BBS CLEAR. SHE HAS ARTIFICIAL LEFT EYE. LEFT GREAT TOE IS AMPUTATED WITH SCAR TO BOTTOM OF FOOT. LEFT HIP AND ABDOMEN HAS BRIUSES. SCABS ARE SCATTERED ON ARMS AND LEGS. LOWER LEGS ARE DISCOLORED. ORIENT TO ROOM INCLUDING HOW TO CALL FOR ASSIST. BED IN LOWEST POSITON AND LOCKED.
--- NOTE | 2019-08-11 19:30 | NUR ---
PT CARE ASSUMED. BEDSIDE SHIFT REPORT COMPLETE. RR EVEN AND UNLABORED ON RA. PRESSURE DRESSEING ON LEFT IJ HEMESPLIT. DRESSING NOTED TO RIGHT UPPER ARM C/D/I. NO S/S OF DISTRESS NOTED AT THIS TIME. NO NEEDS EXPRESSED. AT BEDSIDE. ENCOURAGED CALL LIGHT FOR ASSISTANCE. SR X2. WILL CTM.
--- NOTE | 2019-08-11 20:03 | MORECARE ---
CASE MANAGEMENT DISCHARGE SUMMARY PATIENT: WILBERT HINES UNIT: [id number] ADM DATE: 08/09/19 AGE: 39 : [birth year] SEX: F ROOM/BED: D.2132 AUTHOR: LUTHER THORNTON PHYSICIAN: REFERRING PHYSICIAN: SAMUEL LITTLE MD DATE OF SERVICE: 08/11/19 Discharge Plan Patient Name: WILBERT HINES [facility] [facility] 1980 Planned Disposition: Home Anticipated Discharge Date: Discharge Date: Expected LOS: Initial Reviewer: [email or web address] Initial Review Date: 08/09/2019 Generated: 08/11/19 9:03 pm Comments DCP- Discharge Planning Updated by [email or web address]: Anika Castaneda on 08/10/19 6:[address] CM attempted to see patient she was in surgery when CM came in for assessment. No family currently available DCPIA - Discharge Planning Initial Assessment Updated by [email or web address]: Anika Castaneda on 08/11/19 8:02 pm * Is the patient Alert and Oriented? Yes * How many steps to enter\exit or inside your home? * PCP MASOOD NEVAREZ * [facility] * Preadmission Environment Home with Family * ADLs Independent * List name and contact numbers for known caregivers / representatives who currently or will assist patient after discharge: REEMA HINES - SPOUSE - [phone] * Verbal permission to speak to the caregivers and representatives has been obtained from the patient. Yes * Community resources currently utilized None * Additional services required to return to the preadmission environment? No * Can the patient safely return to the preadmission environment? Yes * Has this patient been hospitalized within the prior 30 days at any hospital? No Last DP export: 08/10/19 6:52 Patient Name: WILBERT HINES Page 24543 at 2002 All edits/amendments must be made on the electronic document DICTATION DATE: 08/11/192002 RECREATION TECHNICIAN: IRAIS 08/11/192002 RPT#: [id number] DC DATE: STATUS: ADM IN [facility] [address] [place] [address] END OF REPORT
--- NOTE | 2019-08-11 20:10 | MORECARE ---
CASE MANAGEMENT DISCHARGE SUMMARY PATIENT: WILBERT HINES UNIT: [id number] ADM DATE: 08/09/19 AGE: 39 : [birth year] SEX: F ROOM/BED: D.7080 AUTHOR: LUTHER THORNTON PHYSICIAN: REFERRING PHYSICIAN: SAMUEL LITTLE MD DATE OF SERVICE: 08/11/19 Discharge Plan Patient Name: WILBERT HINES Facility: [facility]:[place] : 1980 Planned Disposition: Home Anticipated Discharge Date: Discharge Date: Expected LOS: Initial Reviewer: [email or web address] Initial Review Date: 08/09/2019 Generated: 08/11/19 9:09 pm Comments DCP- Discharge Planning Updated by [email or web address]: Anika Castaneda on 08/11/19 7:[address] Patient Name: WILBERT HINES Admission Status: ER Accout number: [id number] Admission Date: 08-09-2019 : 1980 Admission Diagnosis: Attending: SAMUEL LITTLE Current LOS: 2 Anticipated DC Date: Planned Disposition: Home Primary Insurance: MEDICARE A & B Discharge Planning Comments: CM met with patient to complete initial dc planning assessment. CM educated patient on the CM role and verbal consent given by patient to complete assessment. Patient lives at home with her where she is independent with her care. At discharge patient plans to return home and feels this is a safe discharge. CM discussed availability of home health, rehab services, and medical equipment. Her spouse will drive her home. Patient has HD MWF @ [facility] @ 0630 Patient denied known discharge needs at this time. CM will continue to follow and will assist as needed with dc plans/needs. Inspector Precision Assembly: Anika Castaneda DCP- Discharge Planning Updated by [email or web address]: Anika Castaneda on 08/10/19 6:[address] CM attempted to see patient she was in surgery when CM came in for assessment. No family currently available DCPIA - Discharge Planning Initial Assessment Updated by [email or web address]: Anika Castaneda on 08/11/19 8:02 pm * Is the patient Alert and Oriented? Yes * How many steps to enter\exit or inside your home? * PCP MASOOD NEVAREZ * Pharm[facility] * Preadmission Environment Home with Family * ADLs Independent * List name and contact numbers for known caregivers / representatives who currently or will assist patient after discharge: REEMA HINES - SPOUSE - [phone] * Verbal permission to speak to the caregivers and representatives has been obtained from the patient. Yes * Community resources currently utilized None * Additional services required to return to the preadmission environment? No * Can the patient safely return to the preadmission environment? Yes * Has this patient been hospitalized within the prior 30 days at any hospital? No Last DP export: 08/11/19 7:03 Patient Name: WILBERT HINES Page 29907 at 2009 All edits/amendments must be made on the electronic document DICTATION DATE: 08/11/192008 CAR CHASER: IRAIS 08/11/192008 RPT#: [id number] DC DATE: STATUS: ADM IN [facility] [address] [place] [address] END OF REPORT
[2019-08-12] VITALS: BP 98/56
[2019-08-12 05:00] LABS: BASOPHILS 0.1 % (0-2); EOSINOPHILS 1.1 % (0-7); HEMATOCRIT 26.2 % (36.0-48.0); HEMOGLOBIN 7.9 g/dL (12-16); IMMATURE GRANULOCYTES 0.6 % (0-5); LYMPHOCYTES 5.2 % (15-50); MCH 30.4 pg (26.0-34.0); MCHC 30.2 g/dL (31.0-37.0); MCV 100.8 fL (80.0-100.0); MEAN PLATELET VOLUME 9.5 fL (7.4-10.4); MONOCYTES 6.2 % (2-11); NEUTROPHILS 86.8 % (40-80); PLATELET COUNT 178 10x3/uL (130-400); RDW 14.4 % (11.5-14.5); WBC 7.3 10x3/uL (4.8-10.8)
[2019-08-12 05:20] LABS: ANION GAP 14.4 mmol/L (8-16); CARBON DIOXIDE 27.3 mmol/L (21.0-32.0); PHOSPHOROUS 6.7 mg/dL (2.5-4.9); VANCOMYCIN - RANDOM 17.6 ug/mL (10.0-20.0)
[2019-08-12 05:21] LABS: CREATININE - SERUM 5.2 mg/dL (0.6-1.3); POTASSIUM - SERUM 4.7 mmol/L (3.5-5.1)
--- NOTE | 2019-08-12 07:53 | NUR ---
BLOOD SUGAR HIGH. CALLED PHARMACY TO BRING THE HUMULIN NPH. PATIENT IS ALERT AND AWAKE IN BED AT THIS TIME WITH AT BEDSIDE. SHE REPORTS THAT SHE DOES NOT NORMALLY TAKE HUMULIN R OR HUMULIN NPH AT HOME.
--- NOTE | 2019-08-12 07:59 | NUR ---
PHARM IS BRINGING THE HUMULIN NPH SOON POSSIBLE.
[2019-08-12 09:20] VITALS: BP 117/57
[2019-08-12 12:00] VITALS: BP 146/67
--- NOTE | 2019-08-12 15:08 | NUR ---
PUT IN DISCHARGE ORDERS FOR ALEXEY LEVIN FOR DR OLEARY.
[2019-08-12 16:30] VITALS: BP 146/67
--- NOTE | 2019-08-12 17:57 | NUR ---
PATIENT HAS BEEN DISCHARGED. SHE HAS BEEN DISCHARGED HOME WITH A FAMILY MEMBER. ALL BELONGINGS HAVE GONE HOME WITH THE PATIENT. IV REMOVED FROM HER LEFT WRIST CATHETER INTACT. NOSE SWABBED WITH BETADINE ORDERED. ALL DISCHARGE TEACHING HAS BEEN DONE AND PAPERS SIGNED. FOLLOW UP APPOINTMENTS REVIEWED.
--- NOTE | 2019-08-13 12:27 | MORECARE ---
CASE MANAGEMENT DISCHARGE SUMMARY PATIENT: WILBERT HINES UNIT: [id number] ADM DATE: 08/09/19 AGE: 39 : [birth year] SEX: F ROOM/BED: D.8414 AUTHOR: LUTHER THORNTON PHYSICIAN: REFERRING PHYSICIAN: SAMUEL LITTLE MD DATE OF SERVICE: 08/13/19 Discharge Plan Patient Name: WILBERT HINES Facility: [facility]:[place] : 1980 Planned Disposition: Home Anticipated Discharge Date: Discharge Date: 08/12/2019 Expected LOS: Initial Reviewer: [email or web address] Initial Review Date: 08/09/2019 Generated: 08/13/19 1:27 pm Comments DCP- Discharge Planning Updated by [email or web address]: Anika Castaneda on 08/11/19 7:[address] Patient Name: WILBERT HINES Admission Status: ER Accout number: [id number] Admission Date: 08-09-2019 : 1980 Admission Diagnosis: Attending: SAMUEL LITTLE Current LOS: 2 Anticipated DC Date: Planned Disposition: Home Primary Insurance: MEDICARE A & B Discharge Planning Comments: CM met with patient to complete initial dc planning assessment. CM educated patient on the CM role and verbal consent given by patient to complete assessment. Patient lives at home with her where she is independent with her care. At discharge patient plans to return home and feels this is a safe discharge. CM discussed availability of home health, rehab services, and medical equipment. Her spouse will drive her home. Patient has HD MWF @ [facility] @ 0630 Patient denied known discharge needs at this time. CM will continue to follow and will assist as needed with dc plans/needs. Motion Picture Set Up Worker: Anika Castaneda DCP- Discharge Planning Updated by [email or web address]: Anika Castaneda on 08/10/19 6:[address] CM attempted to see patient she was in surgery when CM came in for assessment. No family currently available DCPIA - Discharge Planning Initial Assessment Updated by [email or web address]: Anika Castaneda on 08/11/19 8:02 pm * Is the patient Alert and Oriented? Yes * How many steps to enter\exit or inside your home? * PCP MASOOD NEVAREZ * Pharmacy [facility] * Preadmission Environment Home with Family * ADLs Independent * List name and contact numbers for known caregivers / representatives who currently or will assist patient after discharge: REEMA HINES - SPOUSE - [phone] * Verbal permission to speak to the caregivers and representatives has been obtained from the patient. Yes * Community resources currently utilized None * Additional services required to return to the preadmission environment? No * Can the patient safely return to the preadmission environment? Yes * Has this patient been hospitalized within the prior 30 days at any hospital? No Last DP export: 08/11/19 7:10 Patient Name: WILBERT HINES Page 07337 at 1227 All edits/amendments must be made on the electronic document DICTATION DATE: 08/13/191226 RESIDENTIAL THERAPIST: IRAIS 08/13/191226 RPT#: [id number] DC DATE:08/12/19 STATUS: DIS IN [facility] [address] [place] [address] END OF REPORT
--- NOTE | 2019-08-25 16:08 | OP ---
PATIENT NAME: WILBERT FLANAGAN MEDICAL RECORD: [id number] :[birth year] LOCATION:D.M2 D.2132 ADMISSION DATE:08/09/19 SURGEON: REEMA BOOGIE MD DATE OF OPERATION: 08/10/2019 REFERRING PHYSICIAN: Dr. Chase PREOPERATIVE DIAGNOSES: Infected pseudoaneurysm, left arm AV graft with impending rupture. ADDITIONAL DIAGNOSES: End-stage renal disease and dependence on hemodialysis. OPERATION PERFORMED: Open revision of AV graft left arm without thrombectomy by excision of segment including the infected pseudoaneurysm and implantation of a new PTFE jump graft and a new tunnel, then also ultrasound-guided insertion of a left internal jugular 19-cm tunneled dialysis catheter with ultrasound guidance. ANESTHESIA: General endotracheal with the patient having a difficult airway for LMA administration of anesthetic. PREOPERATIVE NOTE: Ms. Flanagan is a 39-year-old diabetic female patient with end-stage renal disease, on chronic hemodialysis with a left upper arm loop PTFE AV graft. She has suddenly developed an enlarging pseudoaneurysm, which appears inflamed and is presumed infected. She is brought to the operating room today urgently for repair. She was admitted to the hospital and spent the last evening in the ICU in observation there. Under general endotracheal anesthesia administered by QUALITY CONTROL TESTER, the patient was prepped and draped in a sterile manner. Incision was made over the graft and it was exposed proximally and distally to the area of concern. The graft was controlled with Silastic loops and clamped as needed. The incision was extended and the area of pseudoaneurysm was exposed and this segment was resected. It did not exhibit any gross purulence. The graft was cut back to healthy looking prosthetic material. Cultures and gram stains were collected and sent to the laboratory. I chose a new PTFE graft and implanted it through a new tunnel suturing it end to end, both arterial and venous ends with running 6-0 Prolene. Prior to that, the grafts were flushed with heparinized saline. The suture lines were treated with BioGlue and with release of the occluding clamps and loops, excellent flow was established in the graft and the suture lines were hemostatic. The patient's wounds were irrigated with Ancef-gentamicin solution and partially closed with interrupted Vicryl suture and running intracuticular Monocryl. The segment where the larger pseudoaneurysm was located was dressed with a wound VAC. The patient's coagulopathy was reversed with transfusion of 1 unit of fresh frozen plasma. I thought that the patient should have a tunneled dialysis catheter for use for the next few weeks. She was reprepped and redraped and the neck examined with ultrasound and I found that the right internal jugular was occluded. I then located with ultrasound the left internal jugular vein. I made an incision over at the base of the neck and using micropuncture technique and continuous ultrasound guidance, I placed a needle and guidewire directly into the left internal jugular vein. Under fluoroscopy, guidewires and dilators were advanced and eventually a 19-cm long tunneled HemoSplit dialysis catheter was inserted. OPERATIVE REPORT [id number] DONNY,WILBERT ROSS The catheter was sutured in position with 2-0 Prolene. The cervical wound closed with interrupted inverted 3-0 Vicryl and Dermabond glue. Further sterile dressings were applied, and the patient then in a stable condition was awakened and extubated and taken to the recovery room in stable condition. PLAN: The patient will need to continue intravenous antibiotic coverage according to culture results, probably 6 weeks of vancomycin. She will be managed this evening in the ICU and discharged when home health arrangements are set. The patient will resume her Brilinta this coming Wednesday if there is no bleeding. I will plan on her having dialysis via her HemoSplit for the next 4-6 weeks. TRANSINT:[id number] Voice Confirmation ID: [id number] DOCUMENT ID: [id number] REEMA BOOGIE MD at 1608 CC: [id number] DICTATION DATE: 08/16/191655 DEAN OF GRADUATE STUDIES: 08/17/19 0035 DIS IN 08/12/19 [facility] [address] [place] [address]
--- NOTE | 2019-08-25 16:08 | OP ---
PATIENT NAME: WILBERT FLANAGAN MEDICAL RECORD: [id number] :[birth year] LOCATION:D. D.2132 ADMISSION DATE:08/09/19 SURGEON: REEMA BOOGIE MD DATE OF OPERATION: 08/10/2019 REFERRING PHYSICIAN: Jacinto Chase MD PREOPERATIVE DIAGNOSES: End-stage renal disease and dependence on hemodialysis and diabetes mellitus type 1 and infected pseudoaneurysm of right arm AV graft with impending rupture. POSTOPERATIVE DIAGNOSES: End-stage renal disease and dependence on hemodialysis and diabetes mellitus type 1 and infected pseudoaneurysm of right arm AV graft with impending rupture. OPERATION PERFORMED: Open revision of AV graft, right arm without thrombectomy by excision of a segment including the infected pseudoaneurysm and implantation of a new PTFE jump graft in a new tunnel. Then, ultrasound-guided insertion of a left internal jugular 19-cm tunneled dialysis catheter. ANESTHESIA: General endotracheal per MAKEUP SALES CONSULTANT. Note, the patient had a difficult airway and it was not possible to administer her anesthesia by LMA. PREOPERATIVE NOTE: Ms. Flanagan is a 39-year-old diabetic white female from [facility] who is on chronic hemodialysis in [place] with a right upper arm loop PTFE AV graft. She in the last few days suddenly developed an enlarging pseudoaneurysm, which appears inflamed and is presumed infected. Blood culture from [place] is pending. She is on anticoagulants. She is brought to the operating room today urgently for repair. She was admitted to the hospital and spent the last evening in ICU, so that she could be watched closely due to concerns over possible rupture and major hemorrhage. DESCRIPTION OF PROCEDURE: Under general endotracheal anesthesia administered per MAKEUP SALES CONSULTANT, the patient was prepped and draped in sterile manner. Incision was made over the graft in the right arm and it was exposed both proximally and distally over the arterial and venous limbs and dissected circumferentially and controlled when needed with Silastic loops or atraumatic vascular clamps. The patient's residual coagulopathy was reversed with transfusion of 1 unit of fresh frozen plasma. The segment of graft including the infected expanding pseudoaneurysm was then exposed through an incision placed directly over it. I did not find any pus or obvious purulent process. Swabs were taken for culture and sensitivity for aerobic and anaerobic organisms. The pseudoaneurysm and approximately an inch and a half of graft on either side was totally circumferentially dissected and freed. The graft was clamped on both the arterial and venous limbs and then transected and the segment excised and discarded after cultures were taken. The patient's wound was debrided additionally and irrigated with Ancef/gentamicin solution and was grossly quite clean. The graft was aspirated and then both sides flushed with heparinized saline and again clamped. I chose a 6-mm diameter Propaten PTFE graft and anastomosed it end-to-end to the arterial limb of the graft and it was then placed through a new subcutaneous tunnel and brought back to the venous limb where it was first aspirated and then flushed again with heparinized saline as was the venous limb itself and then an end-to-end anastomosis again performed. Both anastomoses were done with running 6-0 Prolene and sealed with BioGlue. Then, with release of the occluding clamps, excellent flow developed immediately OPERATIVE REPORT [id number] NULL,WILBERT ROSS within the graft and the suture lines were both hemostatic. The patient's wounds were once again irrigated with Ancef and gentamicin solution and the patient's wounds were partially closed over both the anastomoses with interrupted inverted 3-0 Vicryl and running intracuticular Monocryl. The middle segment of the incision was closed with interrupted Prolene sutures. Hemostasis had been assured with electrocautery and the wound was quite dry. The patient's new or revised graft is functioning well, but will not be able to be accessed for several weeks and so I elected to place a tunneled dialysis catheter. Sterile dressings were applied to her arm and she was then completely reprepped and redraped and the neck examined with ultrasound and I found the right internal jugular vein to be occluded from prior access. I then located the left internal jugular vein with ultrasound. Images were recorded and placed in the patient's record for documentation. The left internal jugular vein was compressible and of normal caliber and without any sonographic abnormality really. I made an incision over at the base of the neck and using micropuncture technique and continuous ultrasound guidance, inserted a micro needle and wire and then performed catheter exchanges, which led up to insertion of a 0.038 guidewire, which was then passed into the right atrium and on into the inferior vena cava. Under fluoroscopy, dilators were passed and lastly a dilator peel-away sheath was inserted. I chose a 19-cm long tunneled HemoSplit dialysis catheter instead of the 23 as I would usually use on the left side. This was because of the patient's petite stature. The catheter was inserted through a stab incision just beneath the clavicle and tunneled upward to the cervical incision and then inserted through the peel-away sheath under fluoroscopy over a guidewire and the tip placed deep into the right atrium. The guidewire was removed as was the peelaway sheath and both lumens were aspirated and returned blood easily. They were then flushed with saline and then heparin locked solution, clamped and capped. The catheter was sutured to the skin near the entry site with 2-0 Prolene and the cervical incision was closed with interrupted inverted 3-0 Vicryl and Dermabond glue. That site was dressed with Maxorb Ag, Tegaderm, and Cavilon skin prep and the catheter entry site was dressed with a chlorhexidine Biopatch and standard CVL dressing. At that point, the patient was awakened and in stable condition returned to the recovery room. The patient will need to continue intravenous antibiotic coverage according to final culture results, probably 6 weeks of vancomycin intravenously is indicated. She will be managed the evening after surgery in the ICU and should be able to be discharged when home health arrangements are set and the culture results are back, so we know what antibiotics to treat her with. She will be continued on her Brilinta, her antiplatelet medication as of this coming Wednesday if there is no bleeding problem. I will plan on her having dialysis via her HemoSplit for the next 4-6 weeks starting tomorrow. TRANSINT:[id number] Voice Confirmation ID: [id number] DOCUMENT ID: [id number] cc: [facility] OPERATIVE REPORT [id number] WILBERT FLANAGAN JAMES MD at 1608 CC: JACINTO CHASE MD [id number] DICTATION DATE: 08/23/19 1032 ORGAN FIXER: 08/23/19 1103 DIS IN 08/12/19 [facility] [address] [place] [address]
== END 2019-08-12 18:00 | disposition home or self-care (01) | DRG 252 ==
LOC: D.ER 13:12 → D.M2 16:03 → D.ICU 16:03 → D.M2 08-11 17:57
PROVIDERS: Family Medicine; Surgery; ADMIT Internal Medicine Nephrology; ATTEND Internal Medicine Nephrology
PROC: 03WY0JZ Revision of Synthetic Substitute in Upper Artery, Open Approach (ICD-10-PCS; principal; 2019-08-10 13:00)
DX: T82.7XXA Infection and inflammatory reaction due to other cardiac and vascular devices, implants and grafts, initial encounter (principal); N18.6 End stage renal disease; I12.0 Hypertensive chronic kidney disease with stage 5 chronic kidney disease or end stage renal disease; E87.1 Hypo-osmolality and hyponatremia; E11.22 Type 2 diabetes mellitus with diabetic chronic kidney disease; Z99.2 Dependence on renal dialysis; K21.9 Gastro-esophageal reflux disease without esophagitis; E87.6 Hypokalemia; D63.1 Anemia in chronic kidney disease; G47.30 Sleep apnea, unspecified; I25.10 Atherosclerotic heart disease of native coronary artery without angina pectoris

== ENCOUNTER → 2020-02-20 19:04 | Outpatient (CLI) | payer MEDICARE ==
[2019-08-10 09:22] VITALS: BMI 22.2
[~2020-02-20 19:04] MED LIST changes: +ASPIRIN81 MG PO; +BRILINTA90 MG PO; +LIPITOR40 MG PO; +TRESIBA FL100 UNIT/1 SC; +[UNRECOGNIZED DRUG - OTHER]
== END | disposition home or self-care (01) ==
LOC: D.MAMMO 09:45
PROVIDERS: ATTEND Family Medicine
DX: Z12.31 Encounter for screening mammogram for malignant neoplasm of breast (principal)

== ENCOUNTER → 2020-03-28 09:55 | Outpatient (CLI) | payer MEDICARE ==
[2019-08-10 09:22] VITALS: BMI 22.2
== END | disposition home or self-care (01) ==
LOC: D.MAMMO 03-27 10:00
PROVIDERS: ATTEND Family Medicine
DX: R92.8 Other abnormal and inconclusive findings on diagnostic imaging of breast (principal)